=== PATIENT | male | born 1980 | race Caucasian/White ===

== ENCOUNTER 2019-03-22 11:27 | Emergency (ER) | payer OTHER, MEDICAID ==
[~2019-03-22] VITALS: Ht 180.3 cm; Wt 99.8 kg
[2019-03-22] MEDS ORDERED: IBUPROFEN 800800 M1 PO (12:53)
[2019-03-22] MEDS ORDERED: KEFLEX500 M1 PO (12:53)
[2019-03-22] MEDS ORDERED: NORCO 5-325 TA1 EAC1 PO (12:53)
[2019-03-22 13:45] VITALS: BP 131/92
== END 2019-03-22 13:46 | disposition home or self-care (01) ==
LOC: M.ERS 11:27
DX: S56.522A Laceration of other extensor muscle, fascia and tendon at forearm level, left arm, initial encounter (principal); F17.200 Nicotine dependence, unspecified, uncomplicated; W23.1XXA Caught, crushed, jammed, or pinched between stationary objects, initial encounter; Y92.89 Other specified places as the place of occurrence of the external cause; Y93.89 Activity, other specified; Y99.8 Other external cause status

== ENCOUNTER 2021-10-11 20:11 | Emergency (ER) | payer OTHER, MEDICAID ==
[~2021-10-11] VITALS: Ht 180.3 cm; Wt 90.7 kg
[~2021-10-11 20:11] MED LIST: IBUPROFEN 800800 M1 PO; KEFLEX500 M1 PO; NORCO 5-325 TA1 EAC1 PO
[2021-10-11 20:14] VITALS: BP 156/96
[2021-10-11] MEDS ORDERED: LISINOPRIL5 MG PO (20:17)
[2021-10-11] MEDS ORDERED: VICTOZA0.6 MG/0.1 SUBQ (20:17)
--- NOTE | 2021-10-12 13:19 | EKG ---
[place] [address] ELECTROCARDIOGRAM REPORT Name: IBAN LARA Room: [facility]#: [id number] Admission: 10/11/21 Attend Phys: Discharge: 10/11/21 Date of : 76 Date of Service: 10/11/212013 Report #: [id number] THIS REPORT FOR: //name// [facility] ED Test Date: 2021-10-11 Test Time: 20:14:36 Pat Name: IBAN LARA Department: Room: Gender: Product Support Rep: [place] : 1980 Requested By: Nicolette Saba Order Number: [id number] MD: Saeed Soliz Measurements Intervals [place] Rate: 108 P: 29 ID: [id number] QRS: 99 QRSD: 106 T: 29 QT: 343 QTc: 460 Interpretive Statements Sinus tachycardia Borderline right axis deviation No previous ECG available for comparison Electronically Signed On 10-12-2021 13:19:11 [employer] by Saeed Soliz [email or web address] <ELECTRONICALLY SIGNED> By: Saeed Soliz MD, [facility] 10/12/21 1319 13 13 Saeed Soliz MD, FACC /EPI
== END 2021-10-11 20:34 | disposition left against medical advice (07) ==
LOC: M.ERS 20:11
DX: R07.89 Other chest pain (principal); Z53.21 Procedure and treatment not carried out due to patient leaving prior to being seen by health care provider